=== PATIENT | female | born 1990 | race Caucasian/White ===

== ENCOUNTER 2016-05-06 16:28 | Emergency (ER) | payer OTHER ==
[~2016-05-06] VITALS: Ht 157.5 cm; Wt 59.8 kg
[~2016-05-06 16:28] MED LIST: ALBENZA200 MG PO; CIPRO500 MG PO; ENDOCET 5-3251 EACH PO; FENTANYL1 EAC1 TD; Hydrodiuril,Oretic,E PO; MOTRIN600 MG PO; MOTRIN800 MG PO; Morphine Sulfate IV; NOHOMEMEDS; NORCO 5/3251 TABLET PO; Procardia XL,Adalat PO; TIZANIDINE HCL2 M1 PO; VENTOLIN HFA18 GM IH; ZOFRAN4 MG PO; ZOFRAN4 MG/2 ML IV; ZOLOFT25 MG PO
[2016-05-06 18:30] LABS: HEMATOCRIT 55.6 % (36.0-46.0); MCH 29.8 PG (29.0-34.0); MCHC 33.8 G/DL (30.0-36.0); MCV 88.3 FL (83-99); MEAN PLAT.VOLUME 9.7 uM^3 (9.5-12.4); PLATELET COUNT 308 K/uL (156-360); RBC DIS.WIDTH-SD 42.3 % (39-53)
[2016-05-06 18:45] LABS: CHLORIDE 106 mEq/L (99-109); POTASSIUM 3.9 mEq/L (3.7-5.4); SODIUM 138 mEq/L (136-147)
[2016-05-06 18:47] LABS: GLUCOSE 106 mg/dL (70-99)
[2016-05-06 18:49] LABS: ANION GAP 12 MEQ/L (2-14)
[2016-05-06 18:50] LABS: TOTAL BILIRUBIN 1.3 mg/dL (0.0-1.0)
[2016-05-06 18:51] LABS: ALKALINE PHOSPHATASE 79 IU/L (3-129); GFR ESTIMATE (CALCULATED) 58 mL/min/
[2016-05-06 18:52] LABS: UREA NITROGEN (BUN) 13 mg/dL (9-23)
[2016-05-06 19:02] LABS: QUANTITATIVE HCG < 4.0 MIU/ML
[2016-05-06 20:51] LABS: ADD MIUA? YES; BILIRUBIN NEGATIVE; BLOOD NEGATIVE; COLOR YELLOW ((YELLOW)); GLUCOSE (STRIP) NEGATIVE; KETONES 20; LEUKOCYTES NEGATIVE; NITRITE NEGATIVE; PROTEIN (STRIP) 100; SPECIFIC GRAVITY 1.018 (1.000-1.030); UROBILINOGEN 0.2 MG/DL (0.2-1.0)
[2016-05-06] MEDS ORDERED: CLONIDINE HCL0.1 MG PO (21:05)
[2016-05-06] MEDS ORDERED: ZOFRAN ODT4 MG PO (21:05)
[2016-05-06] MEDS ORDERED: ATARAX,VISTARIL50 MG PO (21:05)
[2016-05-06 21:32] LABS: AMORPHOUS URATES CRYSTALS 3+; BACTERIA 3+ /HPF; EPITHELIAL CELLS 1+ /HPF; MUCUS 1+ /LPF; RED BLOOD CELLS 0-5 /HPF (0-5); UCUL ADDED? NO; WHITE BLOOD CELLS 0-5 /HPF (0-5)
[2016-05-06 21:38] VITALS: BP 132/94
[2016-05-07] MEDS ORDERED: MIRALAX255 GM PO (15:50)
[2016-05-07] MEDS ORDERED: STOOL SOFTENER240 MG PO (15:50)
== END 2016-05-06 21:39 | disposition home or self-care (01) ==
LOC: EME 16:28
DX: F11.23 Opioid dependence with withdrawal (principal); E86.0 Dehydration; R11.2 Nausea with vomiting, unspecified; F17.200 Nicotine dependence, unspecified, uncomplicated
CPT/HCPCS: 80053; 81003; 84702; 85027; 99281; 99285; J2405; J7030

== ENCOUNTER 2016-05-07 11:25 | Emergency (ER) | payer OTHER ==
[~2016-05-07] VITALS: Ht 157.5 cm; Wt 53.7 kg
[~2016-05-07 11:25] MED LIST changes: +ATARAX,VISTARIL50 MG PO; +CLONIDINE HCL0.1 MG PO; +ZOFRAN ODT4 MG PO
[2016-05-07 12:55] LABS: HEMATOCRIT 52.2 % (36.0-46.0); MCH 30.2 PG (29.0-34.0); MCHC 34.1 G/DL (30.0-36.0); MCV 88.6 FL (83-99); MEAN PLAT.VOLUME 9.7 uM^3 (9.5-12.4); PLATELET COUNT 270 K/uL (156-360); RBC DIS.WIDTH-CV 13.1 % (11.8-14.6); RBC DIS.WIDTH-SD 42.9 % (39-53); RED BLOOD COUNT 5.89 M/uL (3.80-5.20); WHITE BLOOD COUNT 11.1 K/uL (4.1-10.2)
[2016-05-07 13:05] LABS: CHLORIDE 107 mEq/L (99-109)
[2016-05-07 13:06] LABS: POTASSIUM 3.7 mEq/L (3.7-5.4); SODIUM 139 mEq/L (136-147)
[2016-05-07 13:08] LABS: GLUCOSE 99 mg/dL (70-99)
[2016-05-07 13:09] LABS: ANION GAP 13 MEQ/L (2-14)
[2016-05-07 13:11] LABS: ALKALINE PHOSPHATASE 74 IU/L (3-129); GFR ESTIMATE (CALCULATED) > 59 mL/min/; TOTAL BILIRUBIN 1.7 mg/dL (0.0-1.0)
[2016-05-07 13:13] LABS: UREA NITROGEN (BUN) 19 mg/dL (9-23)
[2016-05-07 13:15] LABS: LIPASE 21 U/L (1.0-51.0)
[2016-05-07 13:20] LABS: QUANTITATIVE HCG < 4.0 MIU/ML
[2016-05-07 13:28] LABS: ADD MIUA? YES; BILIRUBIN NEGATIVE; BLOOD NEGATIVE; COLOR YELLOW ((YELLOW)); GLUCOSE (STRIP) NEGATIVE; KETONES 80; LEUKOCYTES NEGATIVE; NITRITE NEGATIVE; PROTEIN (STRIP) 100; SPECIFIC GRAVITY 1.025 (1.000-1.030); UROBILINOGEN 0.2 MG/DL (0.2-1.0)
[2016-05-07 13:51] LABS: BACTERIA 2+ /HPF; CASTS NONE SEEN /LPF; CRYSTALS PRESENT; EPITHELIAL CELLS 1+ /HPF; MUCUS 2+ /LPF; RED BLOOD CELLS NONE SEEN /HPF (0-5); UCUL ADDED? NO; WHITE BLOOD CELLS 0-5 /HPF (0-5)
[2016-05-07 13:52] LABS: AMORPHOUS URATES CRYSTALS 3+
[2016-05-07] MEDS ORDERED: STOOL SOFTENER240 MG PO (15:50)
[2016-05-07] MEDS ORDERED: MIRALAX255 GM PO (15:50)
[2016-05-07 15:53] VITALS: BP 106/62
== END 2016-05-07 16:38 | disposition home or self-care (01) ==
LOC: EME 11:25 → RME 11:25
DX: K56.7 Ileus, unspecified (principal); K59.00 Constipation, unspecified; F11.23 Opioid dependence with withdrawal; Z87.442 Personal history of urinary calculi; F17.200 Nicotine dependence, unspecified, uncomplicated
CPT/HCPCS: 74177; 80053; 81003; 83690; 84702; 85027; 99281; 99285; J1885; J2405; J7030

== ENCOUNTER 2016-06-19 17:47 | Emergency (ER) | payer OTHER ==
[~2016-06-19] VITALS: Ht 157.5 cm; Wt 65.0 kg
[~2016-06-19 17:47] MED LIST changes: +MIRALAX255 GM PO; +STOOL SOFTENER240 MG PO
[2016-06-19] MEDS ORDERED: PEN-VEE K,VEET500 MG PO (18:40)
[2016-06-19] MEDS ORDERED: ULTRAM50 MG PO (18:40)
[2016-06-19] MEDS ORDERED: VENTOLIN HFA18 GM IH (18:52)
[2016-06-19 19:03] VITALS: BP 139/98
== END 2016-06-19 19:04 | disposition home or self-care (01) ==
LOC: EME 17:47 → EXP 17:47
DX: K04.7 Periapical abscess without sinus (principal); J45.909 Unspecified asthma, uncomplicated; F17.200 Nicotine dependence, unspecified, uncomplicated; Z87.442 Personal history of urinary calculi
CPT/HCPCS: 99281; 99284